=== PATIENT | female | born 1970 | race Two or more races ===

== ENCOUNTER 2016-09-23 01:50 | Emergency (ER) | payer SELFPAY ==
[~2016-09-23] VITALS: Ht 154.9 cm; Wt 66.2 kg
[~2016-09-23 01:50] MED LIST: AMOX500T2 PO
[2016-09-23 02:00] VITALS: BP 157/85
== END 2016-09-23 03:29 | disposition home or self-care (01) ==
LOC: ER 01:52
DX: S00.81XA Abrasion of other part of head, initial encounter (principal); S00.31XA Abrasion of nose, initial encounter; Y08.89XA Assault by other specified means, initial encounter; Y93.89 Activity, other specified; Y92.89 Other specified places as the place of occurrence of the external cause; Y99.9 Unspecified external cause status
CPT/HCPCS: 99283; A4606 ×2; A6402; Z7610 ×2

== ENCOUNTER 2017-12-26 18:39 | Emergency (ER) | payer MEDICAID ==
[~2017-12-26] VITALS: Ht 157.5 cm; Wt 59.0 kg
[2017-12-26 18:53] VITALS: BP 107/69
--- NOTE | 2017-12-26 20:15 | NUR ---
CALLED BY BRIGITTE/RN; NOT IN LOBBY. WILL TRY AGAIN
--- NOTE | 2017-12-26 20:23 | NUR ---
CALLED AGAIN; NO ANSWER
--- NOTE | 2017-12-26 20:33 | NUR ---
INFORMED BY ADMITTING "PT LEFT"
== END 2017-12-26 20:36 | disposition left against medical advice (07) ==
LOC: ER 18:43
DX: H57.12 Ocular pain, left eye (principal); Z53.21 Procedure and treatment not carried out due to patient leaving prior to being seen by health care provider
CPT/HCPCS: A4606; Z7610

== ENCOUNTER 2018-06-13 15:46 | Emergency (ER) | payer MEDICAID ==
[~2018-06-13] VITALS: Ht 157.5 cm; Wt 59.0 kg
[2018-06-13] MEDS ORDERED: IBUPROFEN 600 MG TABLET PO ONE ×2 (17:30→17:46)
[2018-06-13 18:39] VITALS: BP 132/80
--- NOTE | 2018-06-13 18:39 | NUR ---
Patient discharged to home in stable condition. Written and verbal after care instructions given. Patient verbalizes understanding of instruction.
== END 2018-06-13 18:47 | disposition home or self-care (01) ==
LOC: ER 15:50
DX: S00.03XA Contusion of scalp, initial encounter (principal); S39.092A Other injury of muscle, fascia and tendon of lower back, initial encounter; F10.10 Alcohol abuse, uncomplicated; Y90.9 Presence of alcohol in blood, level not specified; Z60.2 Problems related to living alone; V09.29XA Pedestrian injured in traffic accident involving other motor vehicles, initial encounter; Y93.89 Activity, other specified; Y92.410 Unspecified street and highway as the place of occurrence of the external cause; Y99.8 Other external cause status
CPT/HCPCS: 70450; 71045; 72100; 84703; 99285; A4606; Z7610